=== PATIENT | female | born 2000 | race Caucasian/White ===

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

== ENCOUNTER 2023-04-21 23:13 | Emergency (ER) | payer BC ==
[~2023-04-21] VITALS: Ht 175.3 cm; Wt 97.7 kg
[2023-04-21 23:19] VITALS: TEMP 98.3
[2023-04-21 23:42] LABS: COLLECTION METHOD CLEAN CATCH
[2023-04-21 23:46] LABS: BASO % 0.3 % (0.0-2.0); EOS # 0.1 K/mm3 (0.0-0.7); EOS % 0.6 % (0.0-4.0); GRAN # 5.4 K/mm3 (1.4-6.5); GRAN % 54.4 % (42.2-75.2); HEMATOCRIT 41.9 % (37.0-47.0); HEMOGLOBIN 14.1 g/dl (12.5-16.0); LYMPH # 3.8 K/mm3 (1.2-3.4); LYMPH % 37.6 % (20.0-51.0); MEAN CELL VOLUME 82 fl (80.0-100.0); MEAN CORPUSCULAR HEMOGLOBIN 27 pg (27-31); MEAN CORPUSCULAR HGB CONC 34 g/dl (33.0-37.0); MEAN PLATELET VOLUME 9.6 fl (7.4-10.4); MONO # 0.7 K/mm3 (0.1-0.6); MONO % 6.9 % (1.7-9.3); PLATELET COUNT 292 K/mm3 (130-400); RED BLOOD COUNT 5.14 M/mm3 (4.10-5.30); REDCELL DISTRIBUTION WIDTH-CV 13.7 % (11.5-14.5)
[2023-04-22 00:01] LABS: URINE APPEARANCE Clear (CLEAR/HAZY); URINE BLOOD Negative (NEGATIVE); URINE COLOR Yellow (YELLOW); URINE GLUCOSE Negative (NEGATIVE); URINE KETONE Negative (NEGATIVE); URINE NITRATE Negative (NEGATIVE); URINE PROTEIN(semi-quant) Negative (NEGATIVE); URINE UROBILINOGEN 0.2 E.U/dL (0.2-1.0)
[2023-04-22 00:02] LABS: MUCOUS Present (NOT PRESENT); URINE BACTERIA Rare /hpf (NONE SEEN); URINE RBC 0-2 /hpf (0-2)
[2023-04-22 00:08] LABS: ALBUMIN 3.9 gm/dL (3.5-5.0); BILIRUBIN,TOTAL 0.3 mg/dL (0.2-1.2); C-REACTIVE PROTEIN 0.77 mg/dL (0.00-0.50); CALCIUM 9.2 mg/dL (8.4-10.2); CREATININE, serum 0.75 mg/dL (0.57-1.11); POTASSIUM 3.7 mmol/L (3.5-4.5)
[2023-04-22] MEDS ORDERED: Ondansetron 4 MG/2 ML VIAL IV ONE (00:45)
[2023-04-22] MEDS ORDERED: droPERidol 2.5 MG/ML 2 ML VIAL IV ONE (00:45)
[2023-04-22] MEDS ORDERED: DULCOLAX STOOL100 MG PO (00:58)
[2023-04-22 01:22] VITALS: BP 98/60; PULSE 69
== END 2023-04-22 01:22 | disposition home or self-care (01) ==
LOC: COL.ER 23:13
PROVIDERS: Nurse Practitioner Primary Care
DX: K92.1 Melena (principal); K59.00 Constipation, unspecified
CPT/HCPCS: J1790; J2405